=== PATIENT | female | born 1950 | race Caucasian/White ===

== ENCOUNTER 2017-09-12 00:35 | Inpatient (IN) ==
[2017-09-12] MEDS ORDERED: METOPROLOL TARTRATE 5 MG/5 ML VIAL IV STA (01:11)
[2017-09-12] MEDS ORDERED: ONDANSETRON 4 MG/2 ML VIAL IV STA (01:11)
[2017-09-12] MEDS ORDERED: PANTOPRAZOLE 40 MG VIAL IV STA (01:13)
[2017-09-12] MEDS ORDERED: METOCLOPRAMIDE 10 MG/2 ML VIAL IV STA (01:13)
[2017-09-12] MEDS ORDERED: AZITHROMYCIN 250 MG TABLET ONE (01:20)
[2017-09-12 01:45] LABS: Basophils # 0.1 10*3/uL (0.0-0.2); Basophils % 0.6 % (0.0-0.8); Eosinophils # 0.3 10*3/uL (0.0-0.87); Eosinophils % 2.7 % (0.00-10.9); Hemoglobin 13.1 GM/DL (12.0-16.0); Immature Granulocytes % 0.4 %; Immature Granulocytes Absolute 0.04 #; Lymphocytes # 2.5 10*3/uL (1.4-4.0); Lymphocytes % 25.5 % (21.3-54.2); Mean Corpuscular HGB Conc 34.5 GM/DL (32-36); Mean Corpuscular Hemoglobin 30 PG (27-34); Mean Corpuscular Volume 85.8 FL (87-102); Mean Platelet Volume 9.5 FL (9.6-12.0); Monocytes # 0.6 10*3/uL (0.11-0.8); Monocytes % 6.6 % (1.7-12.7); Neutrophils # 6.2 10*3/uL (1.4-7.4); Neutrophils % 64.2 % (38.7-73.9); Platelet Count 312 T/CUMM (130-400); Red Blood Count 4.43 MC/CUMM (3.8-5.5); Red Cell Distribution Width 12.8 % (9.3-17.3); White Blood Count 9.6 T/CUMM (4-12)
[2017-09-12 01:54] LABS: PT Patient Result 10.5 SECS; Partial Thromboplastin Time 27.7 SECS (0-40)
[2017-09-12 02:06] LABS: Bilirubin,Total 0.4 MG/DL (0.2-1.0); Calcium 9.5 MG/DL (8.5-10.1); Osmolality,Calculated 267.2 MOS/KG (273-304); Potassium 4.1 MMOL/L (3.5-5.1); Total Protein 7.3 G/DL (6.4-8.3)
[2017-09-12 02:13] LABS: Troponin I Only < 0.015 NG/ML (0.00-0.045)
[2017-09-12 02:27] LABS: Apearance,Urine Slightly Hazy (Clear); Bilirubin,Urine Negative (Negative); Blood, Urine Small mg/dL (Negative); Glucose,Urine (UA) Negative (Negative); Hyaline Casts,Urine 3 /LPF (0-3); Ketones,Urine Negative (Negative); Mucus,Urine Occasional /LPF (Occasional); Nitrite,Urine Negative (Negative); Protein,Urine Negative; RBC,Urine 2 /HPF (0-4); Squamous Epithelial Cell,Urine Occasional /HPF (0-10); Urine Color Yellow (Yellow); Urine Urobilinogen < 2.0 EU/DL (0.2-1.0); WBC,Urine 1 /HPF (0-6)
[2017-09-12 02:28] LABS: Barbiturates Screen,Urine Negative (Negative); Benzodiazepines Screen,Urine Negative (Negative); Cannabinoid Screen,Urine Negative (Negative); Opiate Screen,Urine Negative (Negative); Phencyclidine Screen,Urine Negative (Negative)
[2017-09-12] MEDS ORDERED: ACETAMINOPHEN 325 MG TABLET PO PRN (06:10)
[2017-09-12] MEDS ORDERED: ONDANSETRON 4 MG/2 ML VIAL IV PRN (06:10)
[2017-09-12] MEDS ORDERED: CLORAZEPATE 7.5 MG TABLET PO PRN (06:14)
[2017-09-12] MEDS ORDERED: CALCIUM CARBONATE CHEW 500 MG TABLET PO PRN (06:14)
[2017-09-12] MEDS: PANTOPRAZOLE 40 MG VIAL IV SCH (09:03)
[2017-09-12] MEDS: LEVOTHYROXINE 75 MCG TABLET PO SCH (09:05)
[2017-09-12] MEDS: hydroCHLOROthiazide 25 MG TABLET PO SCH (09:05)
[2017-09-12] MEDS: ASPIRIN EC 81 MG TABLET PO SCH (09:05)
[2017-09-12] MEDS: ENOXAPARIN 40 MG/0.4 ML SYRINGE SUBCUT SCH (09:06)
[2017-09-12] MEDS: TELMISARTAN 40 MG TABLET PO SCH (11:06)
[2017-09-12] MEDS ORDERED: EZETIMIBE 10 MG TABLET PO SCH (21:00)
[2017-09-12] MEDS: GABAPENTIN 100 MG CAPSULE PO SCH ×2 (22:19→22:26)
[2017-09-12] MEDS: ACETAMINOPHEN 325 MG TABLET PO SCH ×2 (22:19→22:25)
[2017-09-12] MEDS: FAMOTIDINE 20 MG TABLET PO SCH ×2 (22:19→22:25)
[2017-09-12] MEDS: CLORAZEPATE 7.5 MG TABLET PO SCH (22:19)
[2017-09-13] MEDS: LEVOTHYROXINE 75 MCG TABLET PO SCH (06:21)
[2017-09-13 06:40] LABS: Basophils # 0.1 10*3/uL (0.0-0.2); Basophils % 0.9 % (0.0-0.8); Eosinophils # 0.3 10*3/uL (0.0-0.87); Hematocrit 38.2 VOL% (35.7-47.0); Hemoglobin 13.2 GM/DL (12.0-16.0); Immature Granulocytes % 0.3 %; Immature Granulocytes Absolute 0.02 #; Lymphocytes # 2.4 10*3/uL (1.4-4.0); Lymphocytes % 41.7 % (21.3-54.2); Mean Corpuscular HGB Conc 34.6 GM/DL (32-36); Mean Corpuscular Hemoglobin 29 PG (27-34); Mean Corpuscular Volume 84.7 FL (87-102); Mean Platelet Volume 9.7 FL (9.6-12.0); Monocytes # 0.5 10*3/uL (0.11-0.8); Monocytes % 8.9 % (1.7-12.7); Neutrophils # 2.5 10*3/uL (1.4-7.4); Neutrophils % 43.2 % (38.7-73.9); Platelet Count 295 T/CUMM (130-400); Red Blood Count 4.51 MC/CUMM (3.8-5.5); Red Cell Distribution Width 12.7 % (9.3-17.3); White Blood Count 5.9 T/CUMM (4-12)
[2017-09-13 07:02] LABS: Albumin 3.6 G/DL (3.4-5.0); Bilirubin,Total 1.1 MG/DL (0.2-1.0); Calcium 8.8 MG/DL (8.5-10.1); Osmolality,Calculated 270.8 MOS/KG (273-304); Potassium 3.7 MMOL/L (3.5-5.1); Total Protein 6.9 G/DL (6.4-8.3)
[2017-09-13 08:51] VITALS: BP 125/69
[2017-09-13] MEDS: hydroCHLOROthiazide 25 MG TABLET PO SCH (09:38)
[2017-09-13] MEDS: ASPIRIN EC 81 MG TABLET PO SCH (09:39)
[2017-09-13] MEDS: GABAPENTIN 100 MG CAPSULE PO SCH ×2 (09:39→10:27)
[2017-09-13] MEDS: ACETAMINOPHEN 325 MG TABLET PO SCH (09:39)
[2017-09-13] MEDS: FAMOTIDINE 20 MG TABLET PO SCH (09:39)
[2017-09-13] MEDS: TELMISARTAN 40 MG TABLET PO SCH (09:39)
[2017-09-13] MEDS: CLORAZEPATE 7.5 MG TABLET PO SCH (09:40)
[2017-09-13] MEDS: ENOXAPARIN 40 MG/0.4 ML SYRINGE SUBCUT SCH ×2 (09:42→10:26)
[2017-09-13] MEDS: PANTOPRAZOLE 40 MG VIAL IV SCH (10:27)
== END 2017-09-13 12:15 | disposition home or self-care (01) | DRG 880 ==
LOC: N.ED 00:35 → N.EDINP 06:10 → N.4E 06:40
PROVIDERS: ADMIT Internal Medicine; ATTEND Internal Medicine

== ENCOUNTER 2020-04-02 05:26 | Observation (INO) ==
[2020-04-02] MEDS ORDERED: SODIUM CHLORIDE 0.9% 1,000 ML IV STA (06:27)
[2020-04-02] MEDS ORDERED: ONDANSETRON 4 MG/2 ML VIAL IV STA (06:27)
[2020-04-02 06:38] LABS: Basophils % 0.3 % (0.0-0.8); Eosinophils % 0.3 % (0.00-10.9); Hematocrit 36.3 VOL% (35.7-47.0); Hemoglobin 12.9 GM/DL (12.0-16.0); Immature Granulocytes % 0.3 %; Immature Granulocytes Absolute 0.01 #; Lymphocytes % 24.9 % (21.3-54.2); Mean Corpuscular HGB Conc 35.5 GM/DL (32-36); Mean Corpuscular Volume 83.6 FL (87-102); Mean Platelet Volume 10.4 FL (9.6-12.0); Monocytes % 8.3 % (1.7-12.7); Neutrophils % 65.9 % (38.7-73.9); Platelet Count 213 T/CUMM (130-400); Red Blood Count 4.34 MC/CUMM (3.8-5.5); Red Cell Distribution Width 11.3 % (9.3-17.3); White Blood Count 3.9 T/CUMM (4-12)
[2020-04-02 07:18] LABS: Albumin 3.9 G/DL (3.4-5.0); Bilirubin,Total 0.6 MG/DL (0.2-1.0); Calcium 8.4 MG/DL (8.5-10.1); Osmolality,Calculated 242.1 MOS/KG (273-304)
[2020-04-02 08:15] LABS: Bilirubin,Urine Negative (Negative); Blood, Urine Small mg/dL (Negative); Glucose,Urine (UA) Negative (Negative); Ketones,Urine 20 mg/dL (Negative); Mucus,Urine Occasional /LPF (Occasional); Nitrite,Urine Negative (Negative); Protein,Urine Negative; RBC,Urine 3 /HPF (0-4); Urine Appearance CLEAR (Clear); Urine Color Yellow (Yellow); Urine Specific Gravity 1.009 (1.001-1.035); Urine Urobilinogen < 2.0 EU/DL (0.2-1.0); WBC,Urine <1 /HPF (0-6)
[2020-04-02] MEDS ORDERED: POTASSIUM CHLORIDE 20 MEQ TABLET PO ONE (10:32)
[2020-04-02] MEDS ORDERED: ONDANSETRON 4 MG/2 ML VIAL IV PRN (10:36)
[2020-04-02] MEDS ORDERED: DEXTROSE 50% 25 GM/50 ML VIAL IV PRN (10:36)
[2020-04-02] MEDS ORDERED: ACETAMINOPHEN 325 MG TABLET PO PRN (10:36)
[2020-04-02] MEDS ORDERED: GLUCAGON 1 MG VIAL IM PRN (10:36)
[2020-04-02] MEDS ORDERED: SODIUM CHLOR 0.9% KCL 40 MEQ 40 MEQ/1,000 ML BAG IV SCH (11:00)
[2020-04-02] MEDS: ENOXAPARIN 40 MG/0.4 ML SYRINGE SUBCUT SCH (12:25)
[2020-04-02 12:59] LABS: Risk Ratio 2.52; Thyroid Stimulating Hormone 1.61 uIU/ml (0.358-3.74); VLDL CHOLESTEROL 12.8 MG/DL
[2020-04-02 13:48] LABS: Calcium 8.5 MG/DL (8.5-10.1); Osmolality,Calculated 250.4 MOS/KG (273-304)
[2020-04-02] MEDS: CHOLECALCIFEROL 1,000 UNIT TABLET PO SCH (17:38)
[2020-04-02] MEDS ORDERED: CLORAZEPATE 3.75 MG TABLET PO PRN (18:07)
[2020-04-02] MEDS ORDERED: MELATONIN 3 MG TABLET PO SCH (21:00)
[2020-04-02] MEDS ORDERED: CLORAZEPATE 3.75 MG TABLET PO SCH (21:00)
[2020-04-02] MEDS ORDERED: EZETIMIBE 10 MG TABLET PO SCH (21:00)
[2020-04-02] MEDS ORDERED: CHOLECALCIFEROL 1,000 UNIT TABLET PO SCH (21:00)
[2020-04-02] MEDS: POTASSIUM CHLORIDE INJ 20 MEQ in LACTATED RINGERS 1,000 ML IV SCH (21:27)
[2020-04-02] MEDS: FAMOTIDINE 20 MG TABLET PO SCH ×2 (21:30→22:40)
[2020-04-02] MEDS: ZINC SULFATE 220 MG CAPSULE PO SCH (21:31)
[2020-04-02] MEDS: ASCORBIC ACID 500 MG TABLET PO SCH (21:31)
[2020-04-03] MEDS: POTASSIUM CHLORIDE INJ 20 MEQ in LACTATED RINGERS 1,000 ML IV SCH (05:17)
[2020-04-03] MEDS ORDERED: LEVOTHYROXINE 75 MCG TABLET PO SCH (06:30)
[2020-04-03 06:47] LABS: Basophils % 0.4 % (0.0-0.8); Eosinophils % 0.7 % (0.00-10.9); Hematocrit 37.5 VOL% (35.7-47.0); Hemoglobin 12.8 GM/DL (12.0-16.0); Lymphocytes # 1.2 10*3/uL (1.4-4.0); Lymphocytes % 41.1 % (21.3-54.2); Mean Corpuscular HGB Conc 34.1 GM/DL (32-36); Mean Corpuscular Volume 86.6 FL (87-102); Mean Platelet Volume 10.3 FL (9.6-12.0); Monocytes % 11.8 % (1.7-12.7); Platelet Count 199 T/CUMM (130-400); Red Blood Count 4.33 MC/CUMM (3.8-5.5); Red Cell Distribution Width 11.9 % (9.3-17.3); White Blood Count 2.8 T/CUMM (4-12)
[2020-04-03 07:18] LABS: Albumin 3.1 G/DL (3.4-5.0); Osmolality,Calculated 271.7 MOS/KG (273-304); Total Protein 6.3 G/DL (6.4-8.3)
[2020-04-03 08:00] LABS: Elliptocytes Few; Ovalocytes Few; Platelet Estimate Normal; Polychromasia Slight; Schistocytes Few
[2020-04-03] MEDS: LACTATED RINGERS 1,000 ML IV SCH ×2 (08:20→17:06)
[2020-04-03] MEDS: FAMOTIDINE 20 MG TABLET PO SCH (08:20)
[2020-04-03] MEDS: ZINC SULFATE 220 MG CAPSULE PO SCH (08:21)
[2020-04-03] MEDS: ASCORBIC ACID 500 MG TABLET PO SCH (08:21)
[2020-04-03] MEDS: CHOLECALCIFEROL 1,000 UNIT TABLET PO SCH (08:21)
[2020-04-03] MEDS ORDERED: MULTIVITAMIN (BEROCCA) TABLET PO SCH (09:00)
[2020-04-03] MEDS ORDERED: PANTOPRAZOLE 40 MG TABLET PO SCH (09:00)
[2020-04-03] MEDS ORDERED: LOSARTAN 25 MG TABLET PO SCH (09:00)
[2020-04-03] MEDS ORDERED: VITAMIN E 1000 UNIT CAPSULE PO SCH (09:00)
[2020-04-03] MEDS: ENOXAPARIN 40 MG/0.4 ML SYRINGE SUBCUT SCH (11:39)
[2020-04-03 15:34] VITALS: BP 150/76
== END 2020-04-03 20:00 | disposition home or self-care (01) ==
LOC: EDBD → EDUNIT# → N.EDINP 05:26 → N.ED 05:26 → SUATTDRO 10:33 → N.EDINP 12:41 → N.TELES 13:07 → N.2E 18:47
PROVIDERS: ADMIT Internal Medicine; ATTEND Family Medicine